=== PATIENT | male | born 1975 | race Caucasian/White ===

== ENCOUNTER 2017-03-06 11:33 | Emergency (ER) | payer BC ==
[2017-03-06 12:17] VITALS: BP 166/107
--- NOTE | 2017-03-06 12:44 | UC ---
Dental HPI - HPI Summary HPI Summary: fractured molar on lower left jaw, gums are red and swollen, odor, patient states pain progressivly worse over the past 3 days. has an appointment on wednesday with oral surgeon. - History of Current Complaint Chief Complaint: UCDentalProblem Stated Complaint: DENTAL COMPLAINT Time Seen by Provider: 03/06/17 12:32 Hx Obtained From: Patient Onset/Duration: Sudden Onset, Lasting Days Severity: Moderate Related History: Previous Dental Care on Same Tooth, Swelling - Allergies/Home Medications Allergies/Adverse Reactions: Allergies Allergy/AdvReac Type Severity Reaction Status Date / Time No Known Allergies Allergy Verified 03/06/17 12:16 Home Medications: Home Medications Ibuprofen [Advil] 800 mg PO PRN 03/06/17 [History] PMH/Surg Hx/FS Hx/Imm Hx Previously Healthy: Yes - Surgical History Surgical History: None - Family History Known Family History: Positive: None, Hypertension - Social History Alcohol Use: Rare Substance Use Type: None Smoking Status (MU): Never Smoked Tobacco Review of Systems Constitutional: Negative Skin: Negative Eyes: Negative ENT: Dental Pain Respiratory: Negative Cardiovascular: Negative Gastrointestinal: Negative Genitourinary: Negative Motor: Negative Neurovascular: Negative Musculoskeletal: Negative Neurological: Headache Is Patient Immunocompromised?: No All Other Systems Reviewed And Are Negative: Yes Physical Exam Triage Information Reviewed: Yes Appearance: Well-Appearing, Well-Nourished, Pain Distress Vital Signs: Initial Vital Signs Temp 99.3 F 03/06/17 12:08 Pulse 98 03/06/17 12:08 Resp 16 03/06/17 12:08 BP 166/107 03/06/17 12:08 Pulse Ox 98 03/06/17 12:08 Vital Signs Reviewed: Yes Eye Exam: Normal ENT: Positive: Pharynx normal, TMs normal, Dental tenderness, Uvula midline Dental: Positive: Gross Decay/Caries @, Dental Fracture @ - left molar, Cervical Lymphadenopathy Neck exam: Normal Neck: Positive: Supple, Nontender Respiratory Exam: Normal Respiratory: Positive: Chest non-tender, Lungs clear, Normal breath sounds Cardiovascular Exam: Normal Cardiovascular: Positive: RRR, No Murmur, Pulses Normal Abdominal Exam: Normal Abdomen Description: Positive: Nontender, No Organomegaly, Soft Bowel Sounds: Positive: Present Musculoskeletal Exam: Normal Musculoskeletal: Positive: Strength Intact, ROM Intact, No Edema Neurological Exam: Normal Psychological Exam: Normal Dental Complaint Course/Dx - Course Course Of Treatment: hx obtained, exam performed ,meds reviewed, treated for dental infection - Differential Dx/Diagnosis Differential Diagnosis/Dx: Dental Caries, Fractured Tooth, Gingivitis, Peridontic Disease, Peritonsillar Abcess, Pharyngitis, Tonsillitis Provider Diagnoses: fractured tooth, infected tooth. pain Discharge - Discharge Plan Condition: Stable Disposition: HOME Prescriptions: Penicillin VK 500 MG TAB(NF) [Penicillin VK 500 mg Tab] 500 mg PO QID #28 tab Patient Education Materials: Toothache (ED) Referrals: No Primary Care Phys,NOPCP [Primary Care Provider] - Additional Instructions: 1. take the medication as prescribed. 2. Gargle with oil 3-5 minutes and spit it out, rinse with salt water 3. tylenol and Motrin for pain.
== END 2017-03-06 12:52 | disposition home or self-care (01) ==
LOC: UCCORT 11:33
DX: S02.5XXA Fracture of tooth (traumatic), initial encounter for closed fracture (principal); K04.7 Periapical abscess without sinus; K08.89 Other specified disorders of teeth and supporting structures; X58.XXXA Exposure to other specified factors, initial encounter; Y92.9 Unspecified place or not applicable
CPT/HCPCS: 99212; G0463

== ENCOUNTER 2018-05-10 13:31 | Emergency (ER) | payer BC ==
[2018-05-10 14:40] VITALS: BP 118/78
--- NOTE | 2018-05-10 15:23 | UC ---
Back Pain HPI - HPI Summary HPI Summary: 42 yo male with sharp episodic back pain x about a week lasts seconds no triggers noted spontaneously resolves no UTI symptoms no n/v/d no abd or testicular pain no hx of injury - History of Current Complaint Chief Complaint: UCBackPain Stated Complaint: RIGHT SIDE LOW BACK PAIN Time Seen by Provider: 05/10/18 14:55 Hx Obtained From: Patient Onset/Duration: Sudden Onset, Lasting Days Timing: Intermittent, Lasting Seconds Severity Initially: Moderate Severity Currently: None Pain Intensity: 0 Pain Scale Used: 0-10 Numeric Back Pain: Is Discrete @ Character: Sharp Aggravating Factor(s): Nothing Alleviating Factor(s): Nothing Associated Signs And Symptoms: Positive: Negative Full Body (No Head): 1 - pain - Allergies/Home Medications Allergies/Adverse Reactions: Allergies Allergy/AdvReac Type Severity Reaction Status Date / Time No Known Allergies Allergy Verified 05/10/18 14:40 PMH/Surg Hx/FS Hx/Imm Hx Previously Healthy: Yes Cardiovascular History: Hypertension - Surgical History Surgical History: None - Family History Known Family History: Positive: Hypertension - Social History Alcohol Use: Rare Substance Use Type: None Smoking Status (MU): Never Smoked Tobacco Review of Systems All Other Systems Reviewed And Are Negative: Yes Constitutional: Positive: Negative Skin: Positive: Negative Eyes: Positive: Negative ENT: Positive: Negative Respiratory: Positive: Negative Cardiovascular: Positive: Negative Gastrointestinal: Positive: Negative Genitourinary: Positive: Negative Motor: Positive: Negative Neurovascular: Positive: Negative Musculoskeletal: Positive: Negative Neurological: Positive: Negative Psychological: Positive: Negative Physical Exam Triage Information Reviewed: Yes Appearance: Well-Appearing, No Pain Distress, Well-Nourished Vital Signs: Initial Vital Signs Temp 97.6 F 05/10/18 14:35 Pulse 89 05/10/18 14:35 Resp 16 05/10/18 14:35 BP 118/78 05/10/18 14:35 Pulse Ox 99 05/10/18 14:35 Vital Signs Reviewed: Yes Eyes: Positive: Conjunctiva Clear ENT: Positive: Hearing grossly normal. Negative: Nasal congestion, Nasal drainage, Tonsillar swelling, Tonsillar exudate Neck: Positive: Supple, Nontender, No Lymphadenopathy Respiratory: Positive: Lungs clear, Normal breath sounds, No respiratory distress Cardiovascular: Positive: RRR, No Murmur, Pulses Normal Abdomen Description: Positive: Nontender, No Organomegaly. Negative: CVA Tenderness (R), CVA Tenderness (L), Distended, Guarding Bowel Sounds: Positive: Present Musculoskeletal: Positive: ROM Intact, No Edema Neurological: Positive: Alert Psychological Exam: Normal Skin Exam: Normal Back Pain Course/Dx - Course Course Of Treatment: UA tr RBCs - Differential Dx/Diagnosis Provider Diagnosis: Right low back pain, Hematuria Discharge - Sign-Out/Discharge Documenting (check all that apply): Patient Departure All imaging exams completed and their final reports reviewed: No Studies - Discharge Plan Condition: Critical Disposition: HOME Patient Education Materials: Back Pain (ED), Hematuria (ED) Referrals: Vonda Dennison PA [Primary Care Provider] - 5 Days - Billing Disposition and Condition Condition: CRITICAL Disposition: Home
== END 2018-05-10 15:33 | disposition home or self-care (01) ==
LOC: UCCORT 13:31
DX: M54.5 Low back pain (principal); R31.9 Hematuria, unspecified; I10 Essential (primary) hypertension
CPT/HCPCS: 81003; 99211; G0463